=== PATIENT | female | born 1960 | race Caucasian/White ===

== ENCOUNTER 2017-09-24 12:32 | Emergency (ER) | payer OTHER ==
[~2017-09-24] VITALS: Ht 167.6 cm; Wt 92.4 kg
[~2017-09-24 12:32] MED LIST: ERGO500037 PO; LEVO50TA PO
[2017-09-24 12:38] VITALS: TEMP 36.4; Ht 167.6 cm; Wt 92.4 kg
[2017-09-24] MEDS ORDERED: ALUMINUM/MAGNESIUM SUSP 30 ML UDC PO STA (12:53)
[2017-09-24] MEDS ORDERED: SODIUM CHLORIDE 0.9% 1000ML 1,000 ML IV ONE (12:53)
[2017-09-24] MEDS ORDERED: SODIUM CHLORIDE 0.9% 1000ML 1,000 ML IV STA (12:53)
--- NOTE | 2017-09-24 12:56 | EMERGENCY ROOM VISIT NOTE ---
History Report prepared by Jose: Willie Kamara Under the Supervision of: Dr. Sage Taylor M.D. First contact with patient: 12:42 Chief Complaint: ILLNESS Stated Complaint: CHEST ACHES, SHORT OF BREATH,DIARRHEA,BODY ACHES History of Present Illness The patient is a 57 year old female who presents to the Emergency Room with complaints of constant fatigue starting five days ago. She reports her pain as a 7/10 in severity. The patient states she has not been able to stand up without feeling fatigued and weak for the last five days. She reports that she had to call off of work three days ago due to her weakness and fatigue. The patient states she stayed in bed all day and was "stiff". The patient reports that later that night she started to experience diarrhea. She states that as soon as she drinks water, it goes "right through me". The patient states her stools have been yellow like bile. She states she has also been experiencing body aches, a headache, and numbness in her legs. The patient states she has not had a headache since yesterday. She reports she noticed she has had left sided chest pain that she describes as an ache. The patient states the chest pain has been accompanied by shortness of breath. She reports she feels as if she "has no air". The patient also notes a palpitation sensation in her upper chest and throat. She reports she is currently diaphoretic. The patient denies recent antibiotic use, a history of C. Diff., coughing, a fever, a history of blood clots, a history of diabetes, recent long travel, swelling or pain in her legs. She reports a history of cholecystectomy, acid reflux, and thyroid problems, which she takes medications for. Source of History: patient, family Onset: five days ago Position: other (global) Symptom Intensity: 7/10 Quality: other (fatigue) Timing: constant Associated Symptoms: + headache, + diaphoresis, + chest pain, + SOB, + diarrhea, + weakness, + numbness, No fevers, No cough Note: Associated symptoms: body aches, palpitations, yellow stool. Review of Systems See HPI for pertinent positives & negatives. A total of 10 systems reviewed and were otherwise negative. Past Medical & Surgical Medical Problems: (1) GERD (gastroesophageal reflux disease) (2) Hypothyroidism (3) Influenza (4) Obesity Surgical Problems: (1) Hx of cholecystectomy (2) Hx of gastric bypass (3) Hx of repair of left rotator cuff (4) Hx of total knee arthroplasty Old medical records were reviewed. Nurse's notes were reviewed and I agree with. Family History Cancer Diabetes mellitus Gallbladder disease Heart disease Hypertension Kidney disease Kidney stones Social History Smoking Status: Never Smoker Marital Status: single Housing Status: lives alone Occupation Status: employed Current/Historical Medications Scheduled Levothyroxine Sodium (Synthroid), 50 MCG PO DAILY Multivitamin (Multivitamin), 1 TAB PO DAILY Allergies Coded Allergies: BEE STING (Verified Allergy, Severe, 09/24/17) Sulfa Drugs (Verified Allergy, Intermediate, 09/24/17) Codeine (Verified Allergy, Unknown, 09/24/17) Penicillins (Verified Allergy, Unknown, 09/24/17) Ketorolac Tromethamine (Verified Adverse Reaction, Intermediate, GI SYMPTOMS, 09/24/17) Oxycodone (Verified Adverse Reaction, Intermediate, GI SYMPTOMS, 09/24/17) Physical Exam Vital Signs Date Time Temp Pulse Resp B/P (MAP) Pulse Ox O2 Delivery O2 Flow Rate FiO2 09/24/17 16:26 82 20 107/73 99 09/24/17 15:16 74 16 125/77 96 09/24/17 13:34 83 16 131/105 97 Room Air 09/24/17 12:38 36.4 105 20 129/87 96 Room Air Physical Exam General: Non-ill appearing older female in no acute distress. HEENT: Normal cephalic atraumatic. Pupils are equal round and reactive to light. Extraocular movements are intact. Oropharynx is pink with moist mucous membranes. No swelling of the mouth lips or tongue. Neck: Supple with a midline trachea. No meningeal signs or stiffness, no JVD or bruits. No Stridor. Chest: Clear to auscultation bilaterally. No wheezes or rhonchi. No increased work of breathing. Heart: regular rate and rhythm. Abdomen: Soft nontender, nondistended without rebound guarding or rigidity. Extremities: No cyanosis clubbing or edema. No calf tenderness or assymetry Spine/Back. Non tender to palpation. No CVA tenderness Skin: Good turgor without rashes. Neurologic exam: Cranial nerves two through 12 are intact. Motor and sensation are intact and symmetrical throughout. Medical Decision & Procedures ER Provider Diagnostic Interpretation: Radiology results as stated below per my review and radiologist interpretation: CHEST ONE VIEW PORTABLE HISTORY: 57 years-old Female CHEST PAIN acute atypical chest pain COMPARISON: Chest radiograph 07/02/2017 TECHNIQUE: Portable AP view of the chest FINDINGS: Cardiomediastinal and hilar silhouettes are within normal limits. Lungs appear hyperinflated without pneumothorax, pleural effusion, focal airspace consolidation or overt pulmonary edema. Degenerative changes of the shoulders and spine with osteopenic appearance of the bones. IMPRESSION: No acute process. The above report was generated using voice recognition software. It may contain grammatical, syntax or spelling errors. Electronically signed by: Darryl Duran M.D. 09/24/2017 1:17 PM Dictated Date/Time: 09/24/2017 1:16 PM (CHEST FOR PE) ANGIO WITH CT DOSE: 493.78 mGy.cm HISTORY: 57 years-old Female presents with acute left-sided chest pain with shortness of breath TECHNIQUE: Multiple CTA images of the chest were obtained after the intravenous administration of 95 ml Optiray 320. Coronal and sagittal MIPS were obtained from the axial data set and were submitted for review. A dose lowering technique was utilized adhering to the principles of ALARA. COMPARISON: Chest radiograph 09/24/2017 FINDINGS: CTA: Heart is normal in size with trace pericardial effusion. Thoracic aorta is normal in both course and caliber without aneurysm or dissection. The imaged great vessels appear patent. The pulmonary arterial tree is opacified to level of the subsegmental branches and demonstrates no focal filling defects to suggest pulmonary thromboembolic disease. CT CHEST: Thyroid is homogeneous. No pathologically enlarged lymph nodes of the chest identified. No pneumothorax or pleural effusion. Minimal dependent subsegmental bibasilar atelectasis. No suspicious pulmonary nodules or masses. Central airways are patent. Postoperative changes from prior gastric bypass and cholecystectomy. Small sliding-type hiatal hernia. No acute process of the imaged upper abdomen. Soft tissues are unremarkable. Bones appear intact. Degenerative changes of the shoulders and spine. IMPRESSION: 1. No acute intrathoracic abnormality identified, specifically no acute aortic pathology or evidence of pulmonary thromboembolic disease. 2. No lobar airspace consolidation or pathologic adenopathy. 3. Postoperative changes from prior gastric bypass and cholecystectomy. The above report was generated using voice recognition software. It may contain grammatical, syntax or spelling errors. Electronically signed by: Darryl Duran M.D. 09/24/2017 2:59 PM Dictated Date/Time: 09/24/2017 2:50 PM Laboratory Results 09/24/17 13:17 Red Blood Count 5.35, Mean Corpuscular Volume 87.5, Mean Corpuscular Hemoglobin 30.1, Mean Corpuscular Hemoglobin Concent 34.4, Mean Platelet Volume 8.8, Neutrophils (%) (Auto) 69.8, Lymphocytes (%) (Auto) 19.8, Monocytes (%) (Auto) 8.8, Eosinophils (%) (Auto) 0.8, Basophils (%) (Auto) 0.6, Neutrophils # (Auto) 4.47, Lymphocytes # (Auto) 1.27, Monocytes # (Auto) 0.56, Eosinophils # (Auto) 0.05, Basophils # (Auto) 0.04 09/24/17 13:17 Test 09/24/17 13:17 09/24/17 13:30 09/24/17 13:32 09/24/17 15:35 White Blood Count 6.40 K/uL (4.8-10.8) Red Blood Count 5.35 M/uL (4.2-5.4) Hemoglobin 16.1 g/dL (12.0-16.0) Hematocrit 46.8 % (37-47) Mean Corpuscular Volume 87.5 fL (80-100) Mean Corpuscular Hemoglobin 30.1 pg (25-34) Mean Corpuscular Hemoglobin Concent 34.4 g/dl (32-36) Platelet Count 240 K/uL (130-400) Mean Platelet Volume 8.8 fL (7.4-10.4) Neutrophils (%) (Auto) 69.8 % Lymphocytes (%) (Auto) 19.8 % Monocytes (%) (Auto) 8.8 % Eosinophils (%) (Auto) 0.8 % Basophils (%) (Auto) 0.6 % Neutrophils # (Auto) 4.47 K/uL (1.4-6.5) Lymphocytes # (Auto) 1.27 K/uL (1.2-3.4) Monocytes # (Auto) 0.56 K/uL (0.11-0.59) Eosinophils # (Auto) 0.05 K/uL (0-0.5) Basophils # (Auto) 0.04 K/uL (0-0.2) RDW Standard Deviation 45.2 fL (36.4-46.3) RDW Coefficient of Variation 14.1 % (11.5-14.5) Immature Granulocyte % (Auto) 0.2 % Immature Granulocyte # (Auto) 0.01 K/uL (0.00-0.02) Anion Gap 10.0 mmol/L (3-11) Est Creatinine Clear Calc Drug Dose 78.8 ml/min Estimated GFR () 83.4 Estimated GFR (Non- 71.9 BUN/Creatinine Ratio 21.4 (10-20) Calcium Level 8.8 mg/dl (8.5-10.1) Total Bilirubin 0.6 mg/dl (0.2-1) Direct Bilirubin 0.1 mg/dl (0-0.2) Aspartate Amino Transf (AST/SGOT) 38 U/L (15-37) Alanine Aminotransferase (ALT/SGPT) 33 U/L (12-78) Alkaline Phosphatase 90 U/L (45-117) Total Protein 7.9 gm/dl (6.4-8.2) Albumin 3.5 gm/dl (3.4-5.0) Lipase 228 U/L (73-393) Thyroid Stimulating Hormone (TSH) 2.850 uIu/ml (0.300-4.500) Urine Color DK YELLOW Urine Appearance CLEAR (CLEAR) Urine pH 5.5 (4.5-7.5) Urine Specific [place] 1.030 (1.000-1.030) Urine Protein 1+ (NEG) Urine Glucose (UA) NEG (NEG) Urine Ketones 1+ (NEG) Urine Occult Blood NEG (NEG) Urine Nitrite NEG (NEG) Urine Bilirubin NEG (NEG) Urine Urobilinogen NEG (NEG) Urine Leukocyte Esterase TRACE (NEG) Urine WBC (Auto) 1-5 /hpf (0-5) Urine RBC (Auto) 0-4 /hpf (0-4) Urine Hyaline Casts (Auto) 1-5 /lpf (0-5) Urine Epithelial Cells (Auto) >30 /lpf (0-5) Urine Bacteria (Auto) 1+ (NEG) Urine Pathogenic Casts /lpf (0) Urine Mucus PRESENT (NONE PRSENT) Influenza Type A Antigen Neg for Influ A (NEG) Influenza Type B Antigen Neg for Influ B (NEG) Bedside Troponin I < 0.030 ng/ml (0-0.045) Laboratory studies as stated above per my review. Medications Administered Medications (Trade) Dose Ordered Sig/Branden Route Start Time Stop Time Status Last Admin Dose Admin Sodium Chloride 1,000 ml @ 999 mls/hr Q1H1M STAT IV 09/24/17 12:53 09/24/17 13:53 DC 09/24/17 13:22 999 MLS/HR Sodium Chloride 1,000 ml @ 200 mls/hr Q5H ONCE IV 09/24/17 12:53 09/24/17 17:10 DC 09/24/17 15:28 200 MLS/HR Al Hydroxide/Mg Hydroxide (Maalox Susp) 30 ml STK-MED ONCE .ROUTE 09/24/17 13:07 09/24/17 13:08 DC 09/24/17 13:27 30 ML Lidocaine HCl (Viscous Lidocaine 2% Soln) 20 ml STK-MED ONCE .ROUTE 09/24/17 13:07 09/24/17 13:08 DC 09/24/17 13:28 10 ML ECG Per My Interpretation Indication: weakness Rate (beats per minute): 86 Rhythm: normal sinus Findings: PAC, no acute ischemic change Comparison ECG Date: 07/02/17 Change: rate has increased and PACs were not present REPEAT EKG: Normal sinus with a rate of 75. No acute ischemia or ectopy. PACs are now absent. ED Course 1242: Past medical records reviewed. The patient was evaluated in room B11B, and a complete history and physical examination were performed. 1359: I reevaluated the patient and she is doing well. I ordered a CT due to her chest pain. 1253: Ordered Sodium Chloride 1000 ml @ 200 mls/hr IV, Sodium Chloride 1000 ml @ 999 mls/hr IV. 1307: Ordered Lidocaine HCl 20 ml IV, Maalox Susp 30 ml IV. 1546: I reevaluated the patient and she is doing better. Her second troponin is 0. I discussed the results and treatment plan, which she understands and agrees to. The patient is ready for discharge. Viral illness dehydration diarrhea left sided chest pain Medical Decision Differentials include, but are not limited to; influenza, viral illness, cardiac disease, dehydration, electrolyte or metabolic abnormalities. This patient comes in as described above. She has been sick for several days and has multiple complaints. She feels generally weak and tired she also has some chest discomfort on the left with these more of actually shortness of breath rather than chest pain. she appears in no distress. she has had a headache but has none today and looks well and she is nontoxic and non- lethargic and she has nothing to suggest meningeal signs or stiffness. Her abdomen is benign. She does have history of thyroid disease. 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 IV access was established was hydrated normal saline bolus. EKG, chest x-ray, and multiple blood testing was obtained as well as influenza swab. She was given Maalox as she has been have a lot of heartburn lately as well. EKG does not suggest acute coronary syndrome or arrhythmia. She had a second EKG which shows no change compared to the first. She had 2 troponins done 90 minutes apart which was 0. She had chest CT which is no evidence of PE, aortic or other intrathoracic abnormalities. She has no acute electrolyte or metabolic abnormalities. Influenza was negative. I think is most likely was a viral type illness. Her chest pain is atypical and just one of many symptoms she is having. She desires to go home. I think this is reasonable given her workup and symptoms here she should have close follow-up with her regular doctor and return to ER if : Worsening ofv symptoms, fever chills, any new problems or concerns. She was happy to plan and discharged to home. Medication Reconcilliation Current Medication List: was personally reviewed by me Blood Pressure Screening Patient's blood pressure: Normal blood pressure Impression Primary Impression: Viral illness Additional Impressions: Dehydration Diarrhea Left sided chest pain Scribe Attestation The scribe's documentation has been prepared under my direction and personally reviewed by me in its entirety. I confirm that the note above accurately reflects all work, treatment, procedures, and medical decision making performed by me. Departure Information Dispostion Home / Self-Care Referrals Justine Oates M.D. (PCP) Forms HOME CARE DOCUMENTATION FORM, IMPORTANT VISIT INFORMATION, WORK / SCHOOL INSTRUCTIONS Patient Instructions My [facility] Additional Instructions Rest Drink plenty of fluids REturn if: worsening of symptoms, fever, increasing pain, any new problems or concerns Follow-up with your doctor in 1-2 days for recheck Problem Qualifiers
[2017-09-24] MEDS ORDERED: LIDOCAINE HCL 2% VISC SOLN 20 ML UDC ONE (13:07)
[2017-09-24] MEDS ORDERED: ALUMINUM/MAGNESIUM SUSP 30 ML UDC ONE (13:07)
--- NOTE | 2017-09-24 13:18 | DIAGNOSTIC IMAGING REPORT ---
CHEST ONE VIEW PORTABLE HISTORY: 57 years-old Female CHEST PAIN acute atypical chest pain COMPARISON: Chest radiograph 07/02/2017 TECHNIQUE: Portable AP view of the chest FINDINGS: Cardiomediastinal and hilar silhouettes are within normal limits. Lungs appear hyperinflated without pneumothorax, pleural effusion, focal airspace consolidation or overt pulmonary edema. Degenerative changes of the shoulders and spine with osteopenic appearance of the bones. IMPRESSION: No acute process. The above report was generated using voice recognition software. It may contain grammatical, syntax or spelling errors. Electronically signed by: Darryl Duran M.D. 09/24/2017 1:17 PM Dictated Date/Time: 09/24/2017 1:16 PM
[2017-09-24 13:31] LABS: BASO % 0.6 %; BASO ABS # 0.04 K/uL (0-0.2); EOS % 0.8 %; EOS ABS # 0.05 K/uL (0-0.5); HEMATOCRIT 46.8 % (37-47); HEMOGLOBIN 16.1 g/dL (12.0-16.0); IG# 0.01 K/uL (0.00-0.02); LYMPH % 19.8 %; LYMPH ABS # 1.27 K/uL (1.2-3.4); MEAN CELL VOLUME 87.5 fL (80-100); MEAN CORPUSCULAR HEMOGLOBIN 30.1 pg (25-34); MEAN CORPUSCULAR HGB CONC 34.4 g/dl (32-36); MEAN PLATELET VOLUME 8.8 fL (7.4-10.4); MONO % 8.8 %; MONO ABS # 0.56 K/uL (0.11-0.59); NEUT % 69.8 %; NEUT ABS # 4.47 K/uL (1.4-6.5); PLATELET COUNT 240 K/uL (130-400); RED CELL DISTRIBUTION WIDTH CV 14.1 % (11.5-14.5); RED CELL DISTRIBUTION WIDTH SD 45.2 fL (36.4-46.3)
[2017-09-24 13:49] LABS: ALBUMIN 3.5 gm/dl (3.4-5.0); CALCIUM 8.8 mg/dl (8.5-10.1); CREATININE 0.88 mg/dl (0.60-1.20); POTASSIUM 3.5 mmol/L (3.5-5.1)
[2017-09-24 14:00] LABS: TOTAL PROTEIN 7.9 gm/dl (6.4-8.2)
[2017-09-24] MEDS ORDERED: MULT-506 PO (14:11)
[2017-09-24] MEDS ORDERED: OPTIRAY 320 IV PRN (14:15)
[2017-09-24 14:22] LABS: INFLUENZA B ANTIGEN Neg for Influ B (NEG)
--- NOTE | 2017-09-24 15:01 | DIAGNOSTIC IMAGING REPORT ---
(CHEST FOR PE) ANGIO WITH CT DOSE: 493.78 mGy.cm HISTORY: 57 years-old Female presents with acute left-sided chest pain with shortness of breath TECHNIQUE: Multiple CTA images of the chest were obtained after the intravenous administration of 95 ml Optiray 320. Coronal and sagittal MIPS were obtained from the axial data set and were submitted for review. A dose lowering technique was utilized adhering to the principles of ALARA. COMPARISON: Chest radiograph 09/24/2017 FINDINGS: CTA: Heart is normal in size with trace pericardial effusion. Thoracic aorta is normal in both course and caliber without aneurysm or dissection. The imaged great vessels appear patent. The pulmonary arterial tree is opacified to level of the subsegmental branches and demonstrates no focal filling defects to suggest pulmonary thromboembolic disease. CT CHEST: Thyroid is homogeneous. No pathologically enlarged lymph nodes of the chest identified. No pneumothorax or pleural effusion. Minimal dependent subsegmental bibasilar atelectasis. No suspicious pulmonary nodules or masses. Central airways are patent. Postoperative changes from prior gastric bypass and cholecystectomy. Small sliding-type hiatal hernia. No acute process of the imaged upper abdomen. Soft tissues are unremarkable. Bones appear intact. Degenerative changes of the shoulders and spine. IMPRESSION: 1. No acute intrathoracic abnormality identified, specifically no acute aortic pathology or evidence of pulmonary thromboembolic disease. 2. No lobar airspace consolidation or pathologic adenopathy. 3. Postoperative changes from prior gastric bypass and cholecystectomy. The above report was generated using voice recognition software. It may contain grammatical, syntax or spelling errors. Electronically signed by: Darryl Duran M.D. 09/24/2017 2:59 PM Dictated Date/Time: 09/24/2017 2:50 PM
[2017-09-24 16:26] VITALS: BP 107/73; PULSE 82; O2SAT 99
== END 2017-09-24 16:30 | disposition home or self-care (01) ==
LOC: C.EDB 12:33
DX: E86.0 Dehydration (principal); B34.9 Viral infection, unspecified; R19.7 Diarrhea, unspecified; R07.9 Chest pain, unspecified; Z90.49 Acquired absence of other specified parts of digestive tract; K21.9 Gastro-esophageal reflux disease without esophagitis; E03.9 Hypothyroidism, unspecified; E66.9 Obesity, unspecified; Z98.84 Bariatric surgery status; Z96.659 Presence of unspecified artificial knee joint; Z80.9 Family history of malignant neoplasm, unspecified; Z83.3 Family history of diabetes mellitus; Z83.79 Family history of other diseases of the digestive system; Z84.1 Family history of disorders of kidney and ureter; Z79.899 Other long term (current) drug therapy; Z91.030 Bee allergy status; Z88.2 Allergy status to sulfonamides; Z88.5 Allergy status to narcotic agent; Z88.0 Allergy status to penicillin; Z88.8 Allergy status to other drugs, medicaments and biological substances